=== PATIENT | female | born 1930 | race African-American/Black ===

== ENCOUNTER → 2017-01-23 | Outpatient (CLI) | payer MEDICARE ==
[2016-02-17 10:14] VITALS: BP 183/93
[~2017-01-23] MED LIST: AMLO10TA2 PO; ASCO-78 PO; ASPI325T4 PO; CARV6.252 PO; CHOL10003 PO; CRESTOR10 MG PO; FURO-68 PO; IOHEXOL 300 MG/ML 75 ML VIAL IV ONE; LACT1CAP2 PO; LEVO50TA PO; LOSA1TAB17 PO; MAGN250T9 PO; MECL-51 PO; MULT-208 PO; OMEG10006 PO; POTA10TA5 PO; VITA1TAB19 PO
[2017-01-23 09:33] LABS: CREATININE 0.8 mg/dL (0.6-1.0); GFR 82.1
--- NOTE | 2017-01-23 13:04 | RAD ---
Examination: CT angiography neck History: History of carotid occlusion Comparison: 01/20/2014 Technique: Axial CT images of the neck were performed with IV contrast. Coronal and sagittal 3-D MIP reformats are performed PQRS Compliance Statement: One or more of the following individualized dose reduction techniques were utilized for this examination: 1. Automated exposure control 2. Adjustment of the mA and/or kV according to patient size 3. Use of iterative reconstruction technique Findings The visualized apical lungs grossly appears unremarkable. There is moderate atherosclerotic plaque identified in the aortic arch. The innominate and left common carotid origins from the arch are patent. The proximal left subclavian artery is occluded proximal to the origin of the vertebral artery. The the left subclavian artery is reconstituted distal to the origin of the left vertebral artery. There is moderate plaque and narrowing at the origin of the right subclavian artery. There is mild atherosclerotic plaque identified in the bilateral common carotid arteries and the carotid bulb and proximal internal carotid arteries. The carotid arteries in the neck are patent. Mild atherosclerotic plaque identified in the cavernous portion of the bilateral internal carotid arteries The visualized portions of the middle cerebral arteries, posterior cerebral arteries, left anterior cerebral artery are patent. The right anterior cerebral artery appears to arise from the left anterior cerebral artery likely developmental. Posterior communicating arteries are patent. The basilar artery, bilateral vertebral arteries, post intracerebral arteries are patent. The bilateral vertebral arteries are patent. Hypodense thyroid nodules identified in the right and left lobes of thyroid gland with the largest measuring 1.1 cm. Moderate to severe degenerative changes cervical spine. Impression: 1. 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 2. Mild atherosclerotic identified in the carotid arterial system..
== END | disposition home or self-care (01) ==
LOC: CT 08:50
PROVIDERS: ATTEND Internal Medicine Cardiovascular Disease
DX: I77.9 Disorder of arteries and arterioles, unspecified (principal)
CPT/HCPCS: 36415; 70498; 82565

== ENCOUNTER → 2017-05-13 | Outpatient (CLI) | payer MEDICARE ==
[2016-02-17 10:14] VITALS: BP 183/93
[~2017-05-13] MED LIST changes: -ASPI325T4 PO; +ASPI325T8 PO; -IOHEXOL 300 MG/ML 75 ML VIAL IV ONE
--- NOTE | 2017-05-13 15:00 | RAD ---
APPROVED REPORT Patient Location : OUT-PATIENT Findings Thomas scale images of the bilateral saphenofemoral junctions on limited views do not reveal any eviden ce of thrombus. The right great saphenous vein proximally measures approximate 6 mm and does not show any evidence of reflux. The vein was previously harvested in the mid to distal section for bypass surgery. The left great saphenous vein measures 8.1 mm and does not show any evidence of reflux. The bilateral lesser saphenous veins do not demonstrate any evidence of reflux. Incidental note is made of bilateral groin lymph nodes. The right groin lymph node measures 2.1 x 0.6 x 2.5 cm and the left groin lymph node measures 3.4 x 0.4 x 1.9 cm. Clinical correlation recommended . Critical Notification Critical Value: No <Conclusion> 1. Negative for reflux in the bilateral greater and lesser saphenous veins. 2. Incidental note of bilateral groin lymph nodes, clinical correlation recommended.
--- NOTE | 2017-05-13 15:29 | RAD ---
APPROVED REPORT Bilateral Lower Extremity Venous Study for DVT Patient Location: OUT-PATIENT Findings Thomas scale images of the bilateral common femoral, superficial femoral and popliteal veins do not dem onstrate any clear evidence of thrombus. Spectral waveforms and color Doppler reveal normal flow. The re is grossly normal compressibility throughout. The below-knee veins on thomas scale images were not w ell visualized. There is spontaneous flow noted though below the knees. Incidental note is made of a right popliteal fossa Mayen's cyst measuring approximately 2.5 x 1.1 x 1.7 cm. Critical Notification Critical Value: No <Conclusion> 1. Negative for DVT in the bilateral lower extremities. 2. Incidental Mayen cyst noted in the right popliteal fossa as described above.
== END | disposition home or self-care (01) ==
LOC: US 12:20
PROVIDERS: ATTEND Internal Medicine Cardiovascular Disease
DX: I50.9 Heart failure, unspecified (principal); I25.10 Atherosclerotic heart disease of native coronary artery without angina pectoris; F84.9 Pervasive developmental disorder, unspecified; M79.89 Other specified soft tissue disorders
CPT/HCPCS: 93970

== ENCOUNTER → 2017-05-29 | Outpatient (CLI) | payer MEDICARE ==
[2016-02-17 10:14] VITALS: BP 183/93
[2017-05-29 12:02] LABS: BASO % 1 % (0-3); EOS % 3 % (0-3); HEMATOCRIT 43.6 % (36.0-47.0); HEMOGLOBIN 14.7 g/dL (12.0-15.5); LYMPH # 1.6 x10^3/uL (1.0-4.8); LYMPH % 42 % (24-48); MEAN CORPUSCULAR HEMOGLOBIN 28 pg (25-35); MEAN CORPUSCULAR HGB CONC 34 g/dL (31-37); MEAN CORPUSCULAR VOLUME 83 fL (79-100); MONO % 8 % (0-9); NEUT % 46 % (31-73); PLATELET COUNT 262 x10^3/uL (140-400); RED BLOOD COUNT 5.29 x10^6/uL (3.50-5.40); WHITE BLOOD COUNT 3.7 x10^3/uL (4.0-11.0)
[2017-05-29 12:14] LABS: CALCIUM 9.5 mg/dL (8.5-10.1); CREATININE 0.8 mg/dL (0.6-1.0); GFR 81.9; MAGNESIUM 2.2 mg/dL (1.8-2.4)
--- NOTE | 2017-05-29 12:20 | RAD ---
Indication nontraumatic chest pain. Frontal and lateral views of the chest were obtained. Comparison is made to an exam 01/24/2015. Postoperative changes are noted. Heart size is within normal limits on today's exam. There is no congestive heart failure focal infiltrate significant pleural fluid collection or pneumothorax. IMPRESSION: No acute or focal process is seen in the chest
== END | disposition home or self-care (01) ==
LOC: RAD 11:36
PROVIDERS: ATTEND Internal Medicine Cardiovascular Disease
DX: I11.0 Hypertensive heart disease with heart failure (principal); I25.10 Atherosclerotic heart disease of native coronary artery without angina pectoris
CPT/HCPCS: 36415; 71020; 80048; 83735; 85025

== ENCOUNTER → 2017-06-16 | Outpatient (CLI) | payer MEDICARE ==
[2016-02-17 10:14] VITALS: BP 183/93
[~2017-06-16] MED LIST changes: -LOSA1TAB17 PO; +LOSA1TAB22 PO; +REGADENOSON 0.4 MG/5 ML DISP.SYRIN. IV ONE
--- NOTE | 2017-06-17 08:43 | RAD ---
APPROVED REPORT Test Type: Pharmacological Stress Nurse/Tech: clay myles Test Indications: chest pain Cardiac History: CABG 2011, HTN, SEE EHR Medications: SEE EHR Medical History: SEE EHR Resting ECG: SR WITH BBB AND PROLONG QT Resting Heart Rate: 72 bpm Resting Blood Pressure: 180/74mmHg Pretest Chest Pain: No chest pain Nurse/Tech Notes LUNG SOUNDS CLEAR, S1S2 WNL. Consent: The procedure was explained to the patient in lay terms. Informed consent was witnessed. Aris eout was entered into [employer]. History and Stress Test performed by LYDIA Armas Pharm. Details Pharmacologic stress testing was performed using 0.4mg per 5ml of regadenoson given intravenously ove r 7-10 seconds. Stress Symptoms NONE STATED. POST EXERCISE Reason for Termination: Infusion complete Max HR: 100 bpm Max Blood Pressure: 180/74mmHg Chest Pain: No. Arrhythmia: No. ST Change: No. INTERPRETATION Stress EKG Conclusion: Baseline EKG showed sinus rhythm with left bundle branch block. Nondiagnostic changes at peak stress. No arrhythmias. Imaging Protocol IMAGE PROTOCOL: Rest Tc-99m/stress Tc-99m 1 day Rest: Stress: Viability: Radiopharm.Tc99m NqdyjanmqTc90c Sestamibi Cuop20yGg 35.5mCi Duration 15min. 10min. Img Date 06/16/2017 06/16/2017 Inj-Img [id number]. 60min. Rest Admin Site:IV - Left AntecubitalAdministrator:LYDIA Armas Stress Admin Site: IV - Left AntecubitalAdministrator: LYDIA Armas STRESS DATA End Diast. Vol.112.0mlAv. Heart Rate81.0bpm End Syst. Vol.54.0mlCO Index BSA0.0L/min Myocardial Krac089.0gEject. Htjzqnjn97.0% Stress Rates Pk. Fill Rate1.98EDV/secLVtime Pk. Fill 161.14msec Pk. Empty Rate3.11ESV/secLVtime Pk. Klwhi115.77msec 09/10 Pk. Fill0.67EDV/sec Stress Scores Regional WT2.00Summed WT21.00 Regional WM0.00Summed WM21.00 LV Perfusion Scintigraphic images showed small reversible defect involving the apicolateral wall consistent with i schemia. Wall Motion Abnormal septal wall motion probably secondary to left bundle branch block. The ejection fraction is calculated at 52%. LV Perf. Quant 17 Seg. SSS6.00 17 Seg. SRS2.00 17 Seg. SDS4.00 Stress Defect Extent (% LAD)3.80Rest Defect Extent (% LAD)0.00Rev. Defect Extent (% LAD)1.90 Stress Defect Extent (% LCX) 41.30Rest Defect Extent (% LCX)21.30Rev. Defect Extent (% LCX)30.00 Stress Defect Extent (% RCA)3.30Rest Defect Extent (% RCA)0.00Rev. Defect Extent (% RCA)1.10 Stress Defect Extent (% BECCA)14.60Rest Defect Extent (% BECCA)7.20Rev. Defect Extent (% BECCA)7.00 Conclusion 1. Regadenoson cardioisotope stress test showed small amount of apicolateral wall ischemia. 2. Abnormal septal wall motion probably secondary to left bundle branch block. The ejection fraction is calculated at 52%. 3. Low to intermediate risk for cardiac events.
== END | disposition home or self-care (01) ==
LOC: NM 12:54
PROVIDERS: ATTEND Internal Medicine Cardiovascular Disease
DX: I44.7 Left bundle-branch block, unspecified (principal); I49.5 Sick sinus syndrome; I10 Essential (primary) hypertension; Z95.1 Presence of aortocoronary bypass graft; Z79.01 Long term (current) use of anticoagulants
CPT/HCPCS: 78452; 93017; 96374; 96375; 96376; A9500; J2785